=== PATIENT | female | born 2000 | race African-American/Black ===

== ENCOUNTER 2018-12-04 17:17 | Emergency (ER) | payer MEDICAID ==
[~2018-12-04] VITALS: Ht 154.9 cm; Wt 64.0 kg
[2018-12-04] MEDS ORDERED: SODIUM CHLORIDE 0.9% 1,000 ML IV ONE (18:18)
[2018-12-04] MEDS ORDERED: ONDANSETRON HCL 4MG/2ML INJ IV STA (18:18)
[2018-12-04 20:13] LABS: MEAN CORPUSCULAR HEMOGLOBIN 29.6 pg (28.0-32.0); MEAN CORPUSCULAR VOLUME 87.1 fL (81.0-99.0); MEAN PLATELET VOLUME 9.4 fl (7.4-10.4); PLATELET 246 x1000/uL (130-400); RED CELL DISTRIBUTION WIDTH 13.1 % (11.6-14.6)
[2018-12-04 20:19] LABS: CHLORIDE 106 mEq/L (98-107)
[2018-12-04 20:46] LABS: PLATELET ESTIMATE NORMAL
[2018-12-04 22:30] VITALS: BP 126/73
== END 2018-12-04 22:00 | disposition home or self-care (01) ==
LOC: ER 17:17
DX: R55 Syncope and collapse (principal)
CPT/HCPCS: 36415; 80053; 85025; 93005; 96374; 99284; J2405; J7030